=== PATIENT | male | born 1970 | race Caucasian/White ===

== ENCOUNTER 2018-05-21 14:20 | Emergency (ER) | payer OTHER, SELFPAY ==
[~2018-05-21] VITALS: Ht 180.3 cm; Wt 100.4 kg
[2018-05-21 14:23] VITALS: BP 170/91
[2018-05-21] MEDS ORDERED: PROPARACAINE OPHTH 0.5%, 15ML ONE (14:46)
[2018-05-21] MEDS ORDERED: PROPARACAINE OPHTH 0.5%, 15ML EACHEYE ONE (15:00)
== END 2018-05-21 15:17 | disposition home or self-care (01) ==
LOC: ED 14:50
DX: B02.33 Zoster keratitis (principal); I10 Essential (primary) hypertension
CPT/HCPCS: 99283